=== PATIENT | female | born 1990 | race Caucasian/White ===

== ENCOUNTER 2016-06-17 08:42 | Inpatient (IN) | payer BC, OTHER ==
[~2016-06-17] VITALS: Ht 157.5 cm; Wt 79.5 kg
[~2016-06-17 08:42] MED LIST: FERR1TAB23 PO; LORA10TA7 PO; PREN1TAB73 PO
[2016-06-20] MEDS ORDERED: CALCIUM CARBONATE 500mg Chewable TAB PO PRN (06:00)
[2016-06-20] MEDS ORDERED: LIDOCAINE 1% (10mg/ml) 2ml SDV ID PRN (06:00)
[2016-06-20] MEDS ORDERED: ACETAMINOPHEN 500 MG TABLET PO PRN (06:00)
[2016-06-20] MEDS ORDERED: MAG-AL + SIM LIQUID 30 ML UDC PO PRN (06:00)
[2016-06-20 06:18] LABS: HCT - HEMATOCRIT 30.4 % (36-46); HGB - HEMOGLOBIN 9.1 GM/DL (12-16); MEAN CORPUSCULAR HGB 24.4 UUG (26-34); MEAN CORPUSCULAR HGB CONC(MCHC 29.9 GM/DL (31-37); MEAN CORPUSCULAR VOLUME 81.5 UM3 (80-100); MEAN PLATELET VOLUME 10.4 UM3 (9.4-12.4); RED BLOOD COUNT 3.73 M/MM3 (4.00-5.20); WBC - WHITE BLOOD COUNT 7.9 T/MM3 (4.5-11.0)
[2016-06-20] MEDS: LR 1,000 ML IV PRN ×2 (06:18→14:22)
[2016-06-20 06:22] VITALS: BP 116/71; PULSE 57; RESP 18; TEMP 97.6; O2SAT 97
[2016-06-20] MEDS ORDERED: D5LR 1,000 ML IV PRN (06:45)
[2016-06-20] MEDS ORDERED: OXYTOCIN 30 UNIT in D5LR 500 ML PRN (06:45)
--- NOTE | 2016-06-20 09:05 | ANESOB ---
Epidural/ Date/Time DATE: 06/20/16 TIME: 09:04 Preop Diagnosis Procedure: Labor Epidural Plan: Epidural Height: 5 ' 2.00 " Weight: 79.500 kg BMI: kg/m2 P:0 Medications & Allergies Inpatient Medications Current Medications Medications (Trade) Dose Ordered Sig/Alvaro Start Time Stop Time Status Last Admin Dose Admin Lidocaine HCl 0.2 mg 0.2 mg PRN PRN 06/20/16 06:00 Lactated Ringer's (Lactated Ringers) 1,000 ml @ 0 mls/hr Q0M PRN 06/20/16 05:47 06/20/16 06:18 0 MLS/HR Acetaminophen (Tylenol Extra Strength) 1-2 TABS Q4H PRN 06/20/16 06:00 Al Hydroxide/Mg Hydroxide (Maalox) 30 ml Q4H PRN 06/20/16 06:00 Calcium Carbonate 1-2 TABS Q2H PRN 06/20/16 06:00 Dextrose/Lactated Ringer's 1,000 ml @ 0 mls/hr Q0M PRN 06/20/16 06:45 06/20/16 06:49 0 MLS/HR Oxytocin/Dextrose/ Lactated Ringer's (Pitocin/D5lr) 503 ml @ 0 mls/hr Q0M PRN 06/20/16 06:45 06/20/16 06:49 0 MLS/HR Ferrous Sulfate, Dried (Iron) 160 Mg Tablet.er, 1 TAB PO WB, (Reported) BEST WITH FOOD. Last Taken: on 06/19/16899 Loratadine (Loratadine) 10 Mg Tablet, 10 MG PO ACB, (Reported) Take 1 tablet, by mouth, one time a day (before breakfast). Last Taken: on 06/19/16 09 Pnv95/Ferrous Fumarate/FA ( Tablet) 1 Each Tablet, 1 TAB PO DAILY, (Reported) Last Taken: on 06/19/16899 Coded Allergies: Penicillins (Verified Allergy, Unknown, HIVES, 05/27/16) TESTED BY RF DESIGN ENGINEER, UNSURE IF HIVES IS THE REACTION OR NOT Medical/Surgical History Anesthesia PMH: Reports: Asthma, Denies: *Diabetes, Anesthesia Reactions, Malignant Hyperthermia Smoking Status: Former smoker (quit mar 2016) Does patient use chewing tobac: No Second Hand Exposure: No Substance Use Type: does not use Alcohol Intake: none Anesthesia Adverse Reactions: FOUND none Family Hx of Anesthesia Advers: none Hx of Motion Sickness: No Complications During : No Pertinent Findings Laboratory Tests 06/20/16 06:07 EKG Rhythm: Sinus Rhythm Physical Exam Respiratory: Lungs clear Cardiovascular: No murmur, Regular rate, rhythm Airway Assessment Mallampati Score: II TMD: 3 Fingerbreadths Neck Extension: Good Overall Assessment: No Airway Concerns ASA: 2 Discussion Discussed risks/options/alternatives of anesthesia. Patient consents. Nursing pain assessment noted. Present for Discussion: Present: Spouse Attestation Statement Prior to the delivery of any anesthetic medication, I examined the patient, developed the plan, obtained the patient's consent and discussed the risk and benefits of the procedure with the patient/guardian. If the note happens to be signed after anesthesia start time, it is only due to providing efficient care of the patient and documenting at a time when the computer is available. RADHA GARCIA I RELIEF DOCKING MASTER June 20, 2016 09:05
== END 2016-06-20 15:54 | disposition home or self-care (01) | DRG 782 ==
LOC: MC 06-20 05:35
PROVIDERS: ADMIT Obstetrics & Gynecology; ATTEND Obstetrics & Gynecology
DX: O48.0 Post-term pregnancy (principal); Z3A.40 40 weeks gestation of pregnancy
CPT/HCPCS: 85027; 86850; 86870; 86900; 86901

== ENCOUNTER 2016-06-24 16:13 | Inpatient (IN) | payer BC ==
[~2016-06-24] VITALS: Ht 157.5 cm; Wt 79.9 kg
--- OUTSIDE RECORDS SUMMARY | 2016-06-24 16:28 | XMS REPORT | Continuity of Care Document ---
Author Author [facility] Organization [facility] Address Unknown Phone Unavailable Support Name Relationship Address Phone DENG MICHELLE MD Caregiver [address] [place] [address] [address] Unavailable DENG MICHELLE MD Caregiver [address] [place] [address] [address] [facility] [address] [place] [address] Unavailable VINI MADRIGAL Next Of Kin [address] [place] [address] Insurance Providers Guarantor Dilia Madrigal Address [address] [place] [address] Email [email or web address] Policy Number [id number] Subscriber's Name Vini Madrigal Relationship 01 Spouse Group Number [id number] Payer [facility] Policy Number [id number] Subscriber's Name Dilia Madrigal Relationship 18 Self Group Number [id number] Advance Directives Directive Response Recorded Date/Time Dr Ordered Resuscitation Status Full Code 06/20/16 5:49am DPOA for Healthcare Only No 06/20/16 6:22am Living Will No 06/20/16 6:22am Problems No problem information available. Medications Current Home Medications Medication Dose Units Route Directions Days Qty Instructions Start Date Ferrous Sulfate, Dried (Iron) 160 Mg Tablet.er 1 Tab Oral Give With Breakfast BEST WITH FOOD. 05/27/16 Loratadine 10 Mg Tablet 10 Mg Oral Before Breakfast Take 1 tablet, by mouth, one time a day (before breakfast). 05/27/16 Pnv95/Ferrous Fumarate/Fa ( Tablet) 1 Each Tablet 1 Tab Oral Daily 05/27/16 Social History Social History Problem Response Recorded Date/Time Onset Date Status Reason for Hospitalization 06/20/2016 3:42pm Not Applicable Not Applicable Hx Substance Use No 06/20/2016 6:22am Not Applicable Not Applicable Has the pt used tobacco in the last 12 months No 06/20/2016 6:22am Not Applicable Not Applicable Query Response Start Date Stop Date Smoking Status Former smoker Hospital Discharge Instructions Instructions: Care Instructions: Reason for Hospitalization: I was in the hospital because (patient own words): baby has not come out yet so it was either today or the to pop her out Discharge Diet: regular Discharge Activity: See discharge instructions Follow Up Appointments: Friday, June 24 at 3:[address] Michelle Pending Lab / Results: No Pending Lab Patient Instructions: See discharge instructions Pain Management/Treatment: See discharge instructions Expected Signs/Symptoms: See discharge instructions Notify Physician If: see discharge instructions During Business Hours:: Please call the physician's office at After Business Hours:: Please call [phone] and have the lasting machine operator hand method page the physician. Condition at time of discharge: Good Plan of Care Discharge Date 06/20/16 3:54pm Disposition 01 DISCHARGED HOME, SELF-CARE Instructions/Education Provided [facility] Prescriptions See Medication Section Care Plan and Goals See Discharge Instructions Section Functional Status Query Response Date Recorded Mobility Status Ambulatory June 20, 2016 3:42pm Assistive Devices None June 20, 2016 3:42pm Activity Limitations None June 20, 2016 3:42pm Feeding Ability Independent June 20, 2016 3:42pm Toileting Ability Independent June 20, 2016 3:42pm Grooming Ability Independent June 20, 2016 3:42pm Dressing Ability Independent June 20, 2016 3:42pm Driving Ability Independent June 20, 2016 3:42pm Housework Ability Independent June 20, 2016 3:42pm Meal Preparation Ability Independent June 20, 2016 3:42pm Stair Climbing Ability Independent June 20, 2016 3:42pm Ability to complete ADL's impeded by No change June 20, 2016 3:42pm Cognitive/Perceptual Impairments Impaired vision June 20, 2016 3:42pm Visual Assistive Devices Glasses June 20, 2016 6:15am Preferred Method of Learning Video/TV Hands on June 20, 2016 6:15am Allergies, Adverse Reactions, Alerts Allergen Type Severity Reaction Status Last Updated Penicillin Allergy Unknown HIVES Active 05/27/16 Immunizations Query Response on File Recorded Date/Time Influenza Vaccine Hx DECLINED 06/20/16 6:22am Tdap Vaccine Hx 04/29/16 @ [facility] 06/20/16 6:22am Vital Signs Acute Vital Signs Vital Response Date/Time Temperature (Fahrenheit) 97.6 deg F (96.8 - 99.1) 06/20/2016 6:22am Temperature (Calculated Celsius) 36.56683 degrees C (36.0 - 37.3) 06/20/2016 6:22am Pulse Rate (adult) 57 bpm (60 - 100) 06/20/2016 6:22am Respiratory Rate 18 breaths/min (10 - 20) 06/20/2016 6:22am O2 Sat by Pulse Oximetry 97 % (90 - 100) 06/20/2016 6:22am Oxygen Delivery Method Room Air 06/20/2016 6:22am Blood Pressure 116/71 mm Hg 06/20/2016 6:22am Height (Feet) 5 feet 06/20/2016 6:22am Height (Inches) 2.00 inches 06/20/2016 6:22am Weight (Kilograms) 79.500 kg 06/20/2016 6:22am Height 5 ft 2 in 05/27/2016 10:34am Weight 175.27 lb 06/20/2016 6:22am Body Mass Index 32.0 kg/m^2 06/20/2016 6:22am Results Laboratory Results Test Name Result Units Flags Reference Collection Date/Time Result Date/ Time Comments White Blood Count 7.9 T/MM3 4.5-11.0 06/20/2016 6:07am 06/20/2016 6: 18am Red Blood Count 3.73 M/MM3 L 4.00-5.20 06/20/2016 6:07am 06/20/2016 6: 18am Hemoglobin 9.1 GM/DL L 12-16 06/20/2016 6:07am 06/20/2016 6:18am Hematocrit 30.4 % L 36-46 06/20/2016 6:06/20/2016 6:18am Mean Corpuscular Volume 81.5 UM3 80-100 06/20/2016 6:07am 06/20/2016 6: 18am Mean Corpuscular Hemoglobin 24.4 UUG L 26-34 06/20/2016 6:07am 2016 6:18am Mean Corpuscular Hemoglobin Concent 29.9 GM/DL L 31-37 06/20/2016 6:07am 06/20/2016 6:18am RDW Standard Deviation 44.5 FL 36.9-50.2 06/20/2016 6:0706/20/2016 6 :18am Platelet Count 331 T/MM3 130-400 06/20/2016 6:07am 06/20/2016 6:18am Mean Platelet Volume 10.4 UM3 9.4-12.4 06/20/2016 6:07am 06/20/2016 6: 18am Procedures No known history of procedures. Encounters Encounter Location Arrival/Admit Date Discharge/Depart Date Attending Provider Discharged Inpatient [facility] 06/20/16 5:35am 06/20/16 3:54pm DENG MICHELLE MD
[2016-06-24] MEDS ORDERED: MAG-AL + SIM LIQUID 30 ML UDC PO PRN (16:45)
[2016-06-24] MEDS ORDERED: HYDROCODONE/APAP 5 mg/325 mg TABLET PO PRN (16:45)
[2016-06-24] MEDS ORDERED: ACETAMINOPHEN 500 MG TABLET PO PRN (16:45)
[2016-06-24] MEDS ORDERED: CALCIUM CARBONATE 500mg Chewable TAB PO PRN (16:45)
[2016-06-24 17:01] VITALS: BP 128/67; PULSE 82; RESP 18; TEMP 98.6
[2016-06-24 17:58] LABS: HCT - HEMATOCRIT 31.4 % (36-46); HGB - HEMOGLOBIN 9.6 GM/DL (12-16); MEAN CORPUSCULAR HGB 24.6 UUG (26-34); MEAN CORPUSCULAR HGB CONC(MCHC 30.6 GM/DL (31-37); MEAN CORPUSCULAR VOLUME 80.5 UM3 (80-100); MEAN PLATELET VOLUME 10.8 UM3 (9.4-12.4); RED BLOOD COUNT 3.9 M/MM3 (4.00-5.20); WBC - WHITE BLOOD COUNT 9.1 T/MM3 (4.5-11.0)
[2016-06-24] MEDS ORDERED: DiphenhydrAMINE 25 MG CAPSULE PO ONE (22:30)
[2016-06-25] MEDS: LR 1,000 ML IV PRN ×3 (05:44→17:36)
[2016-06-25] MEDS ORDERED: OXYTOCIN 30 UNIT in D5LR 500 ML SCH (06:00)
[2016-06-25] MEDS: D5LR 1,000 ML IV PRN ×2 (06:06→17:36)
--- NOTE | 2016-06-25 07:57 | ANESOB ---
Epidural/ Date/Time DATE: 06/25/16 TIME: 07:55 Preop Diagnosis Plan: Epidural, Spinal, GETA Height: 5 ' 2.00 " Weight: 79.900 kg BMI: kg/m2 NPO since: 2100 P:0 Heart Rate: 152 Medications & Allergies Inpatient Medications Current Medications Medications (Trade) Dose Ordered Sig/Alvaro Start Time Stop Time Status Last Admin Dose Admin Lactated Ringer's (Lactated Ringers) 1,000 ml @ 0 mls/hr Q0M PRN 06/24/16 16:41 06/25/16 05:44 0 MLS/HR Acetaminophen (Tylenol Extra Strength) 1-2 TABS = 500-1,000 MG Q4H PRN 06/24/16 16:45 06/24/16 20:19 1,000 MG Al Hydroxide/Mg Hydroxide (Maalox) 30 ml Q4H PRN 06/24/16 16:45 Calcium Carbonate (TUMS Regular Strength) 1-2 TABS Q2H PRN 06/24/16 16:45 Acetaminophen/ Hydrocodone Bitart ([place] 5/325) as ordered Q4H PRN 06/24/16 16:45 Diphenhydramine HCl as ordered HS PRN 06/24/16 16:45 06/24/16 22:26 DC Dextrose/Lactated Ringer's 1,000 ml @ 0 mls/hr Q0M PRN 06/25/16 06:00 06/25/16 06:06 0 MLS/HR Oxytocin/Dextrose/ Lactated Ringer's (Pitocin/D5lr) 503 ml @ 0 mls/hr Q0M 06/25/16 06:00 06/25/16 06:08 0 MLS/HR Ferrous Sulfate, Dried (Iron) 160 Mg Tablet.er, 1 TAB PO WB, (Reported) BEST WITH FOOD. Last Taken: on 06/24/16 0800 Loratadine (Loratadine) 10 Mg Tablet, 10 MG PO ACB, (Reported) Take 1 tablet, by mouth, one time a day (before breakfast). Last Taken: on 06/24/16 0800 Pnv95/Ferrous Fumarate/FA ( Tablet) 1 Each Tablet, 1 TAB PO DAILY, (Reported) Last Taken: on 06/24/16 0800 Coded Allergies: Penicillins (Verified Allergy, Unknown, HIVES, 05/27/16) TESTED BY BAND MANAGER, UNSURE IF HIVES IS THE REACTION OR NOT Medical/Surgical History Anesthesia PMH: Reports: Asthma, Obesity, Reflux (), Denies: *Diabetes , Anesthesia Reactions, Malignant Hyperthermia Smoking Status: Former smoker (STOPPED EARLY IN ) Does patient use chewing tobac: No Second Hand Exposure: No Substance Use Type: does not use Alcohol Intake: none Anesthesia Adverse Reactions: FOUND none Family Hx of Anesthesia Advers: none Hx of Motion Sickness: No Pertinent Findings Laboratory Tests 06/24/16 17:28 Physical Exam Respiratory: Bilat breath sounds equal, Lungs clear Cardiovascular: Regular rate, rhythm Airway Assessment Mallampati Score: I TMD: 3 Fingerbreadths Neck Extension: Good Overall Assessment: No Airway Concerns ASA: 2 Discussion Discussed risks/options/alternatives of anesthesia. Patient consents. Nursing pain assessment noted. Present for Discussion: Present: Family Member Attestation Statement Prior to the delivery of any anesthetic medication, I examined the patient, developed the plan, obtained the patient's consent and discussed the risk and benefits of the procedure with the patient/guardian. If the note happens to be signed after anesthesia start time, it is only due to providing efficient care of the patient and documenting at a time when the computer is available. CLARISSE BROOKS CRNA June 25, 2016 07:57
[2016-06-25] MEDS ORDERED: DiphenhydrAMINE 50 MG/ML INJECTION IV PRN ×3 (11:30→20:00)
[2016-06-25] MEDS ORDERED: ONDANSETRON 4mg/2ml INJECTION IV PRN ×2 (11:30)
[2016-06-25] MEDS ORDERED: ROPIVACAINE 1% 200 MG, SUFENTANIL 50 MCG in NORMAL SALINE 80 ML EPI PRN ×6 (11:30)
[2016-06-25] MEDS ORDERED: NALOXONE 0.4mg/ml INJECTION IV PRN ×3 (11:30→20:00)
[2016-06-25] MEDS ORDERED: GENTAMICIN 120 MG in NORMAL SALINE 100 ML IV ONE (17:30)
[2016-06-25] MEDS ORDERED: CITRIC ACID/SODIUM CITRATE 30 ML PO ONE (17:30)
[2016-06-25] MEDS ORDERED: FAMOTIDINE 20mg IVPB 50 ML IV ONE (17:30)
[2016-06-25] MEDS ORDERED: CLINDAMYCIN 900 MG IV ONE (17:30)
[2016-06-25] MEDS ORDERED: LIDOCAINE 2%/EPI 1:200,000 20ml SDV ONE (18:29)
[2016-06-25] MEDS ORDERED: MORPHINE SULFATE PF 5mg/10ml VL (DURAMORPH) ONE (18:34)
[2016-06-25] MEDS ORDERED: ONDANSETRON 4mg/2ml INJECTION ONE (18:47)
[2016-06-25] MEDS ORDERED: PHENYLEPHRINE 10mg/ml INJECTION ONE (18:47)
[2016-06-25] MEDS ORDERED: SALINE FLUSH 10ml SYRINGE ONE (18:50)
[2016-06-25] MEDS ORDERED: FENTANYL 100mcg/2ml INJECTION ONE ×2 (19:22→19:23)
[2016-06-25] MEDS ORDERED: KETOROLAC 30mg/ml INJECTION ONE (19:24)
[2016-06-25] MEDS ORDERED: OXYTOCIN 30 UNIT in D5LR 500 ML IV SCH (19:47)
[2016-06-25] MEDS: D5LR 1,000 ML IV SCH (19:47)
--- NOTE | 2016-06-25 19:58 | OPNOTEPD ---
Operative Note Date of Operation Date of Operation: 06/25/16 General : 1 Para: 0 Gestation (Weeks): 41 Gestation (Days): 0 Preoperative Diagnosis Arrested dilation Postoperative Diagnosis Arrested dilation Procedure Primary, Low-transverse Surgeon Valerie Michelle MD Golf Course Architect Mario Barrera MD Anesthesia Anesthesia Provider: Nicho Reveles CRNA Anesthesia Type: epidural Complications No Complications: No complications Estimated Blood Loss 800 cc Findings viable female, normal uterus, normal adenexa APGARS Weight 3516 grams Name Megha Godfrey Indications post-dates induction, failure to progress Description of Procedure The patient was taken to the operating room where adequate anesthesia as described above was obtained. A Pfannenstiel skin incision was made with the scalpel and carried down to the fascia. Hemostasis was accomplished along the way with Bovie cautery. The fascia was incised and the rectus muscles in the midline. The peritoneum was entered bluntly and incised superiorly and inferiorly taking care to avoid the bowel and bladder. A bladder blade was inserted and a bladder flap was created. A low transverse uterine incision was made as described above and the was delivered in the cephalic position. Mouth and nares were bulb suctioned, the cord was clamped and cut, and the infant was handed to the senior systems developer. Of note, the placenta was noted to be anterior and started partially delivering prior to the infant's head which was slightly wedged in the pelvis. The placenta was delivered and the uterine cavity examined. The uterine incision was closed in a running-lock fashion with 0-monocryl. Hemostasis was confirmed. The bladder flap was then reapproximated with 2-0 chromic. The peritoneal layer was closed with 2-0 vicryl suture in running fashion. The fascia was closed with 0-vicryl suture and the subcutaneous tissue was reapproximated with 2-0 vicryl suture. The skin was closed with 4-0 monocryl suture in subcuticular fashion and a sterile dressing was applied. The patient was subsequently taken to the recovery room in satisfactory condition. Needle, sponge, and instrument counts were correct. VALERIE MICHELLE MD June 25, 2016 19:58
[2016-06-25 20:00] VITALS: RESP 16; O2SAT 97
[2016-06-25] MEDS ORDERED: DiphenhydrAMINE 25 MG CAPSULE PO PRN (20:00)
[2016-06-25] MEDS ORDERED: MILK OF MAGNESIA 30 ML SUSP PO PRN (20:00)
[2016-06-25] MEDS ORDERED: ACETAMINOPHEN 500 MG TABLET PO PRN (20:00)
[2016-06-25] MEDS ORDERED: HYDROCORTISONE 2.5% CREAM 30 GM RECTALLY PRN (20:00)
[2016-06-25] MEDS ORDERED: CALCIUM CARBONATE 500mg Chewable TAB PO PRN (20:00)
[2016-06-25] MEDS ORDERED: NALBUPHINE 10mg/ml INJECTION IV PRN (20:00)
[2016-06-25] MEDS: IBUPROFEN 800 MG TABLET PO PRN (21:07)
[2016-06-25] MEDS: HYDROCODONE/APAP 5 mg/325 mg TABLET PO PRN (21:07)
[2016-06-25 22:00] VITALS: RESP 18; O2SAT 97
[2016-06-25] MEDS: SIMETHICONE 80 MG CHEWABLE TABLET PO CHEW SCH (22:00)
[2016-06-25] MEDS: ONDANSETRON 4mg/2ml INJECTION IV PRN (22:31)
[2016-06-25 23:00] VITALS: BP 126/68; PULSE 74; RESP 16; TEMP 98; O2SAT 97
[2016-06-26] VITALS (14 sets, daily range): BP systolic 111–122; BP diastolic 54–68; PULSE 67–85; RESP 16; TEMP 98.4–100.4; O2SAT 95–100
[2016-06-26] MEDS: D5LR 1,000 ML IV SCH ×2 (04:17→15:47)
[2016-06-26] MEDS: ONDANSETRON 4mg/2ml INJECTION IV PRN (04:17)
[2016-06-26] MEDS: HYDROCODONE/APAP 5 mg/325 mg TABLET PO PRN ×2 (04:23→20:43)
[2016-06-26 05:20] LABS: HCT - HEMATOCRIT 26.5 % (36-46); HGB - HEMOGLOBIN 7.9 GM/DL (12-16); MEAN CORPUSCULAR HGB 24.2 UUG (26-34); MEAN CORPUSCULAR HGB CONC(MCHC 29.8 GM/DL (31-37); MEAN PLATELET VOLUME 9.6 UM3 (9.4-12.4); RED BLOOD COUNT 3.27 M/MM3 (4.00-5.20); WBC - WHITE BLOOD COUNT 14.2 T/MM3 (4.5-11.0)
[2016-06-26] MEDS: SIMETHICONE 80 MG CHEWABLE TABLET PO CHEW SCH ×4 (09:42→22:00)
[2016-06-26] MEDS: DOCUSATE CALCIUM 240 MG CAPSULE PO SCH (09:42)
--- NOTE | 2016-06-26 10:23 | PNPDOC ---
Progress Note PPD1 Rubella: Immune GBS: Negative Blood Type:O neg Subjective 06/26/16 Lochia: Minimal Pain: Controlled Voiding: Pereira still in Place Nausea and Vomiting: No Nausea/Vomiting Objective Vital Signs Date Time Temp Pulse Resp B/P Pulse Ox O2 Delivery O2 Flow Rate FiO2 06/26/16 08:02 16 97 06/26/16 08:01 98.4 76 119/68 Room Air Urine Output: Good General: Alert and Oriented Abdomen: Fundus Firm, Non-tender, Non-distended Incision: Clean/Dry/Intact, No Erythema Extremities: Non-tender Assessment SP, Primary C/S, Anemia (acute on chronic) Plan Routine Care, Continue PNV DENG MICHELLE MD June 26, 2016 10:23
--- NOTE | 2016-06-26 13:41 | NUR ---
Rh FACTOR CONSULT: Mother Blood Type = O negative Child Blood Type = O negative Rho D Immunoglobulin is not necessary. Thank you, Blaire Mccann h
--- NOTE | 2016-06-26 14:30 | NUR ---
SHIFT SUMMARY VSS. FUNDUS FIRM, SCANT LOCHIA. PAIN CONTROLLED WITH ORAL MEDS. PERFORMS SELF CARES. IV LOCKED IN RIGHT WRIST. D/C'D RAHMAN. TOLERATING REGULAR DIET. DRESSING IS DRY AND INTACT.BREAST FEEDING WELL X2. BABY ROOMED IN AND MOM PROVIDED ALL CARES.
[2016-06-26] MEDS: IBUPROFEN 800 MG TABLET PO PRN (20:43)
--- NOTE | 2016-06-26 20:51 | NUR ---
Temp: Temperature of 100.4. Other VSS. Pt. complaining of lower abdominal/incisional pain. Ibuprofen and 2 tab [place] given. No other complaints. Fundus firm at umbilicus. Pain noted during fundal check. This RN asked pt. if the pain from the fundal check was worse than fundal checks during recovery- pt. said no. Dr. Stewart notified of temp. Ordered to recheck temperature in an hour and notify if abnormal. Will continue to monitor.
--- NOTE | 2016-06-26 21:45 | NUR ---
Progress note: Temp recheck- 98.7. Pt. states pain in abdomen has decreased and rates it a 3-4 after medication administration. Will continue to monitor. Incision is asymptomatic and open to air. Pt. has small lochia. Pt. is up ad kinga and performing self cares. Voiding and tolerating regular diet and fluids. Pt. plans to shower after she feeds baby. Attentive to needs. at bedside.
[2016-06-27] MEDS: D5LR 1,000 ML IV SCH ×3 (01:47→21:47)
[2016-06-27 03:59] VITALS: BP 114/61; PULSE 79; RESP 16; TEMP 97.9; O2SAT 99
[2016-06-27] MEDS: HYDROCODONE/APAP 5 mg/325 mg TABLET PO PRN ×2 (04:00→16:57)
[2016-06-27] MEDS: IBUPROFEN 800 MG TABLET PO PRN ×2 (04:00→16:57)
[2016-06-27 07:53] VITALS: BP 113/65; PULSE 63; RESP 16; TEMP 97.7; O2SAT 100
--- NOTE | 2016-06-27 08:04 | PNPDOC ---
Progress Note PPD2 Rubella: Immune GBS: Negative Blood Type:O neg Subjective 06/27/16 Lochia: Minimal Pain: Controlled Voiding: Voiding She has uterine cramping at the end of voiding. Otherwise she feels well. Objective T max was 100.4 at 2014. She denied feeling ill at that time. Her temps have been normal since then. Vital Signs Date Time Temp Pulse Resp B/P Pulse Ox O2 Delivery O2 Flow Rate FiO2 06/27/16 07:53 97.7 63 16 113/65 100 Room Air Urine Output: Good General: Alert and Oriented Abdomen: Fundus Firm, Non-tender, Soft, Non-distended Incision: Clean/Dry/Intact, No Erythema Extremities: Non-tender Assessment (1) Status post primary low transverse section Assessment & Plan: She desires DC. If she continues to be afebrile and feel well, we will DC this evening. If she has another fever, we will start Abx. Plan: Routine Care, Continue PNV MELONIE VELASQUEZ MD June 27, 2016 08:04
[2016-06-27] MEDS ORDERED: HYDR-4246 PO (08:07)
[2016-06-27] MEDS ORDERED: IBUP-1547 PO (08:07)
[2016-06-27] MEDS: SIMETHICONE 80 MG CHEWABLE TABLET PO CHEW SCH ×4 (08:59→22:17)
[2016-06-27] MEDS: DOCUSATE CALCIUM 240 MG CAPSULE PO SCH (08:59)
[2016-06-27 12:00] VITALS: BP 114/61; PULSE 79; RESP 16; TEMP 98.2; O2SAT 99
[2016-06-27 16:57] VITALS: BP 125/69; PULSE 77; RESP 18; TEMP 100; O2SAT 100
--- NOTE | 2016-06-27 17:50 | NUR ---
GENTAMICIN CONSULT: Dx: R/O SEPSIS Will give gentamicin 120mg IV q8hrs. Will continue to monitor and if gentamicin continues after 48hrs will draw levels and evaluate. Thank you.
[2016-06-27] MEDS: CLINDAMYCIN 900mg in D5W 50ml IV SCH (18:00)
[2016-06-27 18:06] LABS: BASOPHILS % (AUTO) 0.1 % (0-2); EOSINOPHILS # (AUTO) 0.1 T/MM3 (0-0.5); EOSINOPHILS % (AUTO) 0.9 % (0-4); HCT - HEMATOCRIT 25.4 % (36-46); HGB - HEMOGLOBIN 7.7 GM/DL (12-16); IMMATURE GRANULOCYTE # (AUTO) 0.07 T/MM3 (0.00-0.03); IMMATURE GRANULOCYTE % (AUTO) 0.7 % (0.0-0.5); LYMPHOCYTES # (AUTO) 1.5 T/MM3 (1-4.8); LYMPHOCYTES % (AUTO) 13.8 % (23-45); MEAN CORPUSCULAR HGB 24.8 UUG (26-34); MEAN CORPUSCULAR HGB CONC(MCHC 30.3 GM/DL (31-37); MEAN CORPUSCULAR VOLUME 81.9 UM3 (80-100); MEAN PLATELET VOLUME 9.5 UM3 (9.4-12.4); MONOCYTES # (AUTO) 0.7 T/MM3 (0-0.8); MONOCYTES % (AUTO) 6.1 % (0-9.0); NEUTROPHILS #(AUTO)-ABSOLUTE 8.4 T/MM3 (1.8-7.7); NEUTROPHILS % (AUTO) 78.4 % (33-66); WBC - WHITE BLOOD COUNT 10.7 T/MM3 (4.5-11.0)
[2016-06-27 18:32] LABS: CREATININE 0.5 MG/DL (0.7-1.2)
[2016-06-27] MEDS: GENTAMICIN 100 ML IV SCH (18:39)
[2016-06-27] MEDS: CEFTRIAXONE 1 G in NORMAL SALINE 100 ML IV SCH (19:27)
[2016-06-28] MEDS: CLINDAMYCIN 900mg in D5W 50ml IV SCH ×3 (01:22→17:06)
[2016-06-28] MEDS: HYDROCODONE/APAP 5 mg/325 mg TABLET PO PRN (01:50)
[2016-06-28] MEDS: GENTAMICIN 100 ML IV SCH ×3 (01:50→18:17)
[2016-06-28] MEDS: IBUPROFEN 800 MG TABLET PO PRN ×2 (01:50→17:06)
[2016-06-28 02:00] VITALS: BP 126/81; PULSE 77; RESP 16; TEMP 98.4; O2SAT 99
[2016-06-28] MEDS: CEFTRIAXONE 1 G in NORMAL SALINE 100 ML IV SCH ×2 (05:51→17:39)
[2016-06-28 06:06] VITALS: TEMP 97.9
[2016-06-28] MEDS: D5LR 1,000 ML IV SCH ×2 (07:47→17:47)
--- NOTE | 2016-06-28 07:56 | PNF ---
DATE June 27, 2016 NARRATIVE This is a patient of Dr. Sheffield who is postoperative day #2 from a section. Last night at 8:15 she had a 100.4 fever. She has been afebrile during the day and they just watched the fever last night but this evening she had a triple-digit temperature again and when I went in to see her she was sitting on the bed with chilling, wrapped in blankets, reporting that she is feeling very cold. With two spikes of fever in two days I did examine. Her uterus was tender to palpation on the fundus. 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 She is allergic to penicillin so I will use Rocephin instead. I will also do a CBC and a creatinine so they can use that for gauging the gentamicin dose. I talked to the patient about staying on antibiotics until she is at least 24 hours afebrile. I talked about sources of infection. Questions were answered to her satisfaction. ESHA
--- NOTE | 2016-06-28 08:43 | PNPDOC ---
Progress Note PPD3 Rubella: Immune GBS: Negative Blood Type:O neg Subjective 06/28/16 Lochia: Minimal Pain: Controlled Voiding: Voiding Nausea and Vomiting: No Nausea/Vomiting Objective Vital Signs Date Time Temp Pulse Resp B/P Pulse Ox O2 Delivery O2 Flow Rate FiO2 06/28/16 06:06 97.9 06/28/16 02:00 77 16 126/81 99 Room Air Abdomen: Fundus Firm, Non-tender Extremities: Non-tender Assessment (1) Status post primary low transverse section Assessment & Plan: She desires DC. If she continues to be afebrile and feel well, we will DC this evening. If she has another fever, we will start Abx. Plan: Routine Care, Continue PNV Comments Pt has been afebrile through the night on iv antibiotics. She reports no further chilling or pain. Plan Antibiotics Antibiotic coverage through 24hrs, then probable dismissal this evening. LAMINE LEDEZMA MD June 28, 2016 08:43
[2016-06-28 09:00] VITALS: BP 115/69; PULSE 68; RESP 16; TEMP 98.4; O2SAT 99
[2016-06-28] MEDS: DOCUSATE CALCIUM 240 MG CAPSULE PO SCH (09:09)
[2016-06-28] MEDS: SIMETHICONE 80 MG CHEWABLE TABLET PO CHEW SCH ×4 (09:09→22:00)
[2016-06-28 14:00] VITALS: TEMP 99.1
--- NOTE | 2016-06-28 15:12 | NUR ---
CM THIS WORKER MET WITH PT ON THIS DATE. PT WAS LAYING IN BED HOLDING BABY. FATHER AT BEDSIDE. THIS WORKER INTRODUCED SELF AND ROLE OF CASE MANAGEMENT. PT REPORTED THAT SHE HAD LATE CARE DUE TO NOT KNOWING THAT SHE WAS . PARENTS REPORTED THAT THEY WERE GOING TO DECIDED ON FOLLOW UP PHYSICIAN FOR BABY. MOTHER REPORTED THAT SHE WILL PLAN FOR FOLLOW UP WITH DR. MICHELLE. MOTHER IS PLANNING TO RETURN TO WORK AFTER 6 WEEKS. FATHER REPORTED THAT THEY ARE FINANCIALLY STABLE AT THIS TIME. DENIED NEEDS. THIS WORKER INQUIRED REGARDING WIC SERVICES. FAMILY UNSURE IF THEY WOULD QUALIFY. PARENTS WERE GIVEN BROCHURE ON WIC AND HEALTHY START PROGRAM. PARENTS REPORTED GOOD FAMILY SUPPORT FROM PATERNAL SIDE OF THE FAMILY THEY LIVE NEARBY. MATERNAL FAMILY IS LOCATED IN THE [place] ARE[place]. PARENTS REPORTED THAT THEY HAVE ALL NECESSARY ITEMS FOR BABY AT HOME. PARENTS DECLINED ANY NEEDS. THIS WORKER GAVE CONTACT INFORMATION FOR THIS WORKER AND ENCOURAGED TO CONTACT WITH CASE MANAGEMENT.
[2016-06-28 17:10] VITALS: BP 132/76; PULSE 88; RESP 18; TEMP 99.3; O2SAT 99
[2016-06-28 19:07] VITALS: TEMP 98.6
== END 2016-06-28 19:30 | disposition home or self-care (01) | DRG 765 ==
LOC: MC 16:13
PROVIDERS: ADMIT Obstetrics & Gynecology; ATTEND Obstetrics & Gynecology
PROC: 10907ZC Drainage of Amniotic Fluid, Therapeutic from Products of Conception, Via Natural or Artificial Opening (ICD-10-PCS; 2016-06-25)
PROC: 3E033VJ Introduction of Other Hormone into Peripheral Vein, Percutaneous Approach (ICD-10-PCS; 2016-06-25)
PROC: 10D00Z1 Extraction of Products of Conception, Low, Open Approach (ICD-10-PCS; principal; 2016-06-25 19:03)
DX: O63.0 Prolonged first stage (of labor) (principal); O86.4 Pyrexia of unknown origin following delivery; O62.0 Primary inadequate contractions; O48.0 Post-term pregnancy; O69.81X0 Labor and delivery complicated by cord around neck, without compression, not applicable or unspecified; O76 Abnormality in fetal heart rate and rhythm complicating labor and delivery; O09.33 Supervision of pregnancy with insufficient antenatal care, third trimester; O99.02 Anemia complicating childbirth; D50.9 Iron deficiency anemia, unspecified; O99.284 Endocrine, nutritional and metabolic diseases complicating childbirth; E28.2 Polycystic ovarian syndrome; O99.52 Diseases of the respiratory system complicating childbirth; J45.909 Unspecified asthma, uncomplicated; Z3A.41 41 weeks gestation of pregnancy; Z37.0 Single live birth
CPT/HCPCS: 36415; 82565; 85025; 85027; 86850; 86870; 86900; 86901; 86922